=== PATIENT | male | born 1955 | race Caucasian/White ===

== ENCOUNTER 2024-12-25 09:13 | Emergency (ER) | payer MEDICARE, SELFPAY ==
[2024-12-25 09:23] VITALS: BP 168/113
[2024-12-25 09:51] LABS: ALT (SGPT) 37 U/L (0-50); AST (SGOT) 48 U/L (17-59); Albumin 4.7 g/dl (3.5-5.0); Alkaline Phosphatase 70 U/L (38-126); Blood Urea Nitrogen 16 mg/dl (9-20); Calcium 9.5 mg/dl (8.4-10.2); Carbon Dioxide 24 mmol/L (22-30); Chloride 107 mmol/L (98-107); Glucose 98 mg/dl (70-99); Potassium 4.4 mmol/L (3.5-5.1); Sodium 140 mmol/L (135-145); Total Bilirubin 0.5 mg/dl (0.2-1.3); Total Protein 7.9 g/dl (6.3-8.2); eGFR > 60.00
[2024-12-25 10:07] LABS: % Basophils 0.4 % (0-2); % Eosinophils 2.1 % (0-6); % Immature Granulocytes 0.2 % (0-0.5); % Lymphocytes 31.1 % (20.5-51.1); % Monocytes 11.9 % (1.7-9.3); % Neutrophils 54.3 % (42.2-75.2); Absolute Eosinophils 0.1 10^3/uL (0-0.7); Absolute Lymphocytes 1.5 10^3/uL (1.2-3.4); Absolute Monocytes 0.6 10^3/uL (0.1-0.6); Absolute Neutrophils 2.6 10^3/uL (1.4-6.5); Hematocrit 40.1 % (39.0-52.0); Hemoglobin 14.2 g/dL (13.0-18.0); Mean Corp Hgb Conc. 35.4 g/dL (33.0-37.0); Mean Corpuscular Hgb 32.7 pg (27.0-31.0); Mean Corpuscular Volume 92.4 fL (80.0-94.0); Mean Platelet Volume 9.7 fL (7.4-10.4); Nucleated Red Blood Cells % 0 % (-); Platelet Count 137 10^3/uL (130-400); Red Blood Cell Count 4.34 10^6/uL (4.70-6.10); Red Cell Dist. Width 12.6 % (11.5-14.5); White Blood Cell Count 4.7 10^3/uL (4.8-10.8)
--- NOTE | 2024-12-25 10:26 | ED.GENMED ---
History of Present Illness
General
Chief Complaint: Skin Problem
Time Seen by Provider: 12/25/24 10:25
History of Present Illness
History of Present Illness:
TIME OF INITIAL ENCOUNTER: 10:30 AM
HPI: The patient was sent here by a nurse practitioner at [facility] urgent care (Lashawn Bone) to help differentiate between DVT and cellulitis. The patient's been having swelling primarily to the right calf. He brought up the
possibility of gout however denies any joint pain and the pain is primarily in the right calf. He denies any significant past medical history other than being overweight. He has no shortness of breath. There is been no fevers. He states he is up
on his feet working in the yard a lot.
EXAM:
GENERAL: Well appearing in no distress, elevated BMI
HEENT: Moist oral mucosa
CARDIOVASCULAR: No murmurs, normal heart rate, regular rhythm, No chest wall tenderness
PULMONARY: No respiratory distress, breath sounds are clear and equal
ABDOMEN: Soft with no peritoneal signs, no tenderness
NEUROLOGIC: Excellent strength all extremities, no coordination deficits
PSYCHIATRIC: Appropriate mental status, normal insight and judgement
EXTREMITIES: Edema noted right greater than left with no calf tenderness
SKIN: Faint erythema to the distal lower extremities right greater than left but no significant warmth no tenderness
NUMBER AND COMPLEXITY OF PROBLEMS ADDRESSED AT THE ENCOUNTER
� Chronic conditions affecting care: No significant past medical history
� Acute Exacerbation and/or Progression of Chronic Illness: This is an acute problem
� Differential Diagnosis includes: DVT, cellulitis, lymphedema, venous stasis, poor nutritional state
AMOUNT AND/OR COMPLEXITY OF DATA TO BE REVIEWED AND ANALYZED
� I performed an independent evaluation of and my interpretation is:
EKG:
CT:
X-rays:
Laboratory Studies: White count is 4.7, chemistries unremarkable, albumin normal
Other: Ultrasound shows no DVT
� Review of other/old records: No old records available for review
� Clinical information was obtained by an independent historian: None needed
� Prescriptions/Medications Considered but not given:
� Further testing considered but not performed:
RISK OF COMPLICATIONS AND/OR MORBIDITY OR MORTALITY OF PATIENT MANAGEMENT
� Social determinants of health affecting care:
� Discussion with other providers:
� Escalation of care including admission/observation vs risk of discharge considered: White blood cell count 4.7, relatively low suspicion for cellulitis. Will obtain ultrasound imaging for further evaluation.
ANY OTHER UPDATES:
Ultrasound imaging negative for DVT. Will give short course of antibiotics for the possibly of cellulitis however very low suspicion for cellulitis. I also strongly encouraged the have the patient keep his leg elevated is much as possible and to
use compression stockings as well.
Phy Exam
Physical Exam
Physical Exam:
See HPI
Course
Orders/Labs/Results
Orders:
Orders
12/25/24 09:33
Complete Blood Count/With Diff Urgent
Comprehensive Metabolic Panel Urgent
12/25/24 10:32
Periph Venous Lwr Ext Rt US [US Periph Venous LOWER Ext RT] Urgent
Comment:
Reason For Exam: R calf swelling
Abnormal Lab Results
12/25/24
09:33
WBC 4.7 L 10^3/uL
(4.8-10.8)
RBC 4.34 L 10^6/uL
(4.70-6.10)
MCH 32.7 H pg
(27.0-31.0)
Monocytes % 11.9 H %
(1.7-9.3)
12/25/24 09:33
12/25/24 09:33
Vital Signs
Initial and Last Documented VS:
Initial Vital Signs
Temp Pulse Resp BP Pulse Ox
36.6 C 71 16 168/113 97
12/25/24 09:23 12/25/24 09:23 12/25/24 09:23 12/25/24 09:23 12/25/24 09:23
Last Documented Vital Signs
Temp Pulse Resp BP Pulse Ox
36.6 C 71 16 168/113 97
12/25/24 09:23 12/25/24 09:23 12/25/24 09:23 12/25/24 09:23 12/25/24 09:23
*Critical Care Note
Total Time (30-74mins, 75-104mins- exclusive of procedures): Not Applicable
ED Attending Note
-
Portions of this chart may have been created with voice recognition software.� Occasional wrong word or��sound alike� substitutions may have occurred due to the inherent limitations of voice recognition software.
Discharge Plan
Departure
Patient Disposition: Home (Routine Discharge)
Date of Disposition: 12/25/24
Time of Disposition: 12:12
Patient with high blood pressure during this ER visit?: Yes
Discharge Problem:
Leg swelling
Instructions: Lymphedema, BLOOD PRESSURE
Prescriptions:
New
cephalexin 500 mg capsule
500 mg PO TID Qty: 21 0RF
Referrals:
Esteban Escamilla MD [Family Provider] -
Activity Restrictions/Additional Instructions:
Although I have relatively low suspicion for cellulitis (infection of the tissue underneath the skin), I did send a prescription for antibiotic to your pharmacy. Your white blood cell count is normal/slightly low at 4.7. Other basic blood work is
normal. Ultrasound shows no sign of blood clot. Try to keep the legs elevated is much as possible. I also recommend using compression stockings to help with the swelling.
Interventions
Interventions:
*Risk Screen - Suicide Last Done: 12/25/24 09:25
*General Assessment Last Done: 12/25/24 10:27
*Neglect/Abuse Screening Last Done: 12/25/24 09:25
*ED- Fall Risk Assessment Last Done: 12/25/24 10:27
*ED COVID-19 Vaccine History Last Done: 12/25/24 10:27
ED-Skin Assessment Last Done: 12/25/24 10:27
Discharge Date and Time
Print Language: SAUDI ARABIAN
== END 2024-12-25 12:22 | disposition home or self-care (01) ==
LOC: EMR 09:13
PROVIDERS: EMERGENCY PHYSICIAN Emergency Medicine; FAMILY PHYSICIAN Family Medicine
DX: R60.0 Localized edema (principal); M79.661 Pain in right lower leg; R03.0 Elevated blood-pressure reading, without diagnosis of hypertension; E66.3 Overweight
CPT/HCPCS: 99284; 80053; 85025; 93971

== ENCOUNTER → 2025-01-25 07:41 | Outpatient (REF) | payer MEDICARE, SELFPAY | LOC: RAD 07:41 | PROVIDERS: ATTENDING PHYSICIAN Surgery; FAMILY PHYSICIAN Family Medicine | DX: R22.43 Localized swelling, mass and lump, lower limb, bilateral (principal) | CPT/HCPCS: 93971 ==